=== PATIENT | female | born 1980 | race Caucasian/White ===

== ENCOUNTER 2017-03-05 12:07 | Inpatient (IN) | payer OTHER ==
--- NOTE | 2017-02-27 16:50 | HP ---
Admitting History and Physical - Primary Care Physician PCP: Mak Fischer - Admission Chief Complaint: Left breast cancer History of Present Illness: 36 year old premenapausal female who felt a lump in her left breast around 12:00 region. Mammogram and US 12/2016 at [facility] showed large area of suspicious calcifications expanding over 3 cm toward supper outer quadrant of left breast. Us showed 8x5 x7 mm mass. US core bx showed invasive ductal carcinoma. MRI breast showed some other areas of suspicion in the left breast and these were biopsied. Stereotactica bx showed left upper outer quadrant showed microinvasive cancer and mastectomy was recommeded at [place]. History Source: Patient Limitations to Obtaining History: No Limitations - Past Medical History Endocrine: Yes: Other (Hashimotos 2014 HELLP syndrome at the time ogf her c section) - Past Surgical History Past Surgical History: Yes: (C section with HELLP syndrome 2014) - Smoking History Smoking history: Never smoked Have you smoked in the past 12 months: No - Alcohol/Substance Use Hx Alcohol Use: Yes (social) Home Medications - Allergies Allergies/Adverse Reactions: Allergies Allergy/AdvReac Type Severity Reaction Status Date / Time No Known Allergies Allergy Verified 02/27/17 16:52 - Home Medications Home Medications (free text): levothyroxine Family Disease History - Family Disease History Family Disease History: CA: Grandparent (MGM lymphoma), Father (esophageal cancer 62), Mother (melanoma 38) Physical Examination Constitutional: Yes: Well Nourished Breast(s): Yes: Other ( mildly ptotic B cup breast with some bxs changes left upper aspect of breast Discrete mass palpated left breast 12:00 as well as scarring at the 2:00 region of prior bx right breast is negative and no adenopathy) Problem List - Problems (1) Breast cancer, left breast Code(s): C50.912 - MALIGNANT NEOPLASM OF UNSPECIFIED SITE OF LEFT FEMALE BREAST Qualifiers: Breast location: upper outer quadrant of breast Patient sex: female Assessment/Plan Bilateral total mastectomies implant and alloderm , left sentenel node biopsy and lymphoscintogram, possible axillary node dissection
[2017-03-01 11:05] VITALS: BMI 21.9
[2017-03-05] MEDS ORDERED: MIDAZOLAM HCL 2 MG/2 ML SINGLE DOSE VIAL ONE (13:29)
[2017-03-05] MEDS ORDERED: ROCURONIUM BROMIDE 50 MG/5 ML VIAL ONE ×2 (13:40→14:41)
[2017-03-05] MEDS ORDERED: PROPOFOL 20 ML ONE ×2 (13:40→14:51)
[2017-03-05] MEDS ORDERED: DEXAMETHASONE SOD PHOSPHATE 4 MG/1 ML VIAL ONE ×2 (13:48→14:20)
[2017-03-05] MEDS ORDERED: ceFAZolin SODIUM 1 GM VIAL ONE (13:48)
[2017-03-05] MEDS ORDERED: ONDANSETRON 4 MG/2 ML VIAL ONE ×2 (13:48→14:20)
[2017-03-05] MEDS ORDERED: LIDOCAINE HCL/PF 2% SDV 5ML VIAL ONE (13:48)
[2017-03-05] MEDS ORDERED: LIDOCAINE 1%/EPI 1:100000 (20 ML MULTI DOSE VIAL) IJ ONE (14:02)
[2017-03-05] MEDS ORDERED: HYDROmorphone HCL/PF 1 MG/ML VIAL (FOR PYXIS CHARGING ONLY) ONE (14:50)
[2017-03-05] MEDS ORDERED: ZOLPIDEM TARTRATE 5 MG TABLET PO PRN (15:43)
[2017-03-05] MEDS ORDERED: ONDANSETRON 4 MG/2 ML VIAL IVPB PRN (15:43)
[2017-03-05] MEDS ORDERED: NEOSTIGMINE METHYLSULFATE 0.5 MG/ML - 10 ML MDV ONE (16:24)
[2017-03-05] MEDS ORDERED: PROMETHAZINE HCL 25 MG/1 ML VIAL IVPUSH PRN (16:44)
[2017-03-05] MEDS ORDERED: ONDANSETRON 4 MG/2 ML VIAL IVPUSH PRN (16:44)
[2017-03-05] MEDS ORDERED: HYDROmorphone HCL CARPU-JECT 1 MG/1 ML DISP.SYRIN IVPUSH PRN (16:44)
[2017-03-05] MEDS: DEXTROSE 5%-0.45% SALINE 1,000 ML IV SCH (18:00)
[2017-03-05] MEDS ORDERED: oxyCODONE HCL 5 MG TABLET PO PRN (20:19)
[2017-03-05] MEDS: oxyCODONE HCL 5 MG TABLET PO PRN ×2 (20:29→23:44)
[2017-03-05] MEDS: ACETAMINOPHEN 325 MG TABLET (FP) PO PRN (20:29)
[2017-03-05] MEDS: CEFAZOLIN 1 GM/D5W 50 ML IVPB SCH (20:29)
[2017-03-06] MEDS: HEPARIN NA (PORCINE) 5,000 UNITS/ML 1ML VIAL SQ SCH ×2 (08:38→20:06)
[2017-03-06 08:42] LABS: MCH 31.5 pg (25.7-33.7); MCHC 34.1 g/dl (32.0-36.0); MEAN CELL VOLUME 92.2 fl (80-96); MEAN PLT VOLUME 9.1 fl (7.5-11.1); PLATELET COUNT 208 K/MM3 (134-434); RDW 11.7 % (11.6-15.6); WHITE BLOOD COUNT 8.2 K/mm3 (4.0-10.8)
--- NOTE | 2017-03-06 08:49 | PN ---
Progress Note (short form) - Note Progress Note: 36F POD1 s/p left breast mastectomy and sentinel lymph node biopsy with bilateral reconstruction under GA-ETT. Pt is doing well, states that pain is well controlled, denies any anesthetic complications. Sensory and motor function intact in bilateral lower extremities.
--- NOTE | 2017-03-06 08:52 | PN ---
Progress Note, Physician Chief Complaint: s/p Left mastectomy with biopsy of nodes with direct pre pectoral implant placement and right breast augmentation for symmetry. History of Present Illness: Pt is POd # 1 laying comfortably in bed in NAD. Pain well controlled. No sob, difficulty breathing, nausea, vomiting, fever, or chills. - Current Medication List Current Medications: Active Medications Acetaminophen (Tylenol -) 650 mg PO Q4H PRN PRN Reason: FEVER Last Admin: 03/05/17 20:29 Dose: 650 mg Fentanyl (Sublimaze Injection -) 50 mcg IVPUSH [id number] PRN PRN Reason: PAIN Stop: 03/08/17 16:45 Heparin Sodium (Porcine) (Heparin -) 5,000 unit SQ Q12H RANJITH Last Admin: 03/06/17 08:38 Dose: 5,000 unit Hydromorphone HCl (Dilaudid Injection -) 0.25 mg IVPUSH [id number] PRN PRN Reason: PAIN Stop: 03/08/17 16:45 Cefazolin Sodium (Ancef 1 Gm Premixed Ivpb -) 50 mls @ 100 mls/hr IVPB Q6H-IV RANJITH Stop: 03/12/17 20:59 Last Admin: 03/05/17 20:29 Dose: 100 mls/hr Dextrose/Sodium Chloride (D5-1/2ns -) 1,000 mls @ 100 mls/hr IV ASDIR RANJITH Last Admin: 03/05/17 18:00 Dose: 100 mls/hr Lactated Ringer's (Lactated Ringers Solution) 1,000 mls @ 125 mls/hr IV ASDIR [facility] Levothyroxine Sodium (Synthroid -) 75 mcg PO DAILY@0700 [facility] Ondansetron HCl (Zofran Injection) 4 mg IVPB Q6H PRN PRN Reason: NAUSEA AND/OR VOMITING Last Admin: 03/05/17 20:00 Dose: 4 mg Oxycodone HCl (Roxicodone -) 5 mg PO Q3H PRN Last Admin: 03/05/17 23:44 Dose: 5 mg Oxycodone HCl (Roxicodone -) 10 mg PO Q3H PRN Zolpidem Tartrate (Ambien -) 5 mg PO HS PRN PRN Reason: Insomnia - Objective Vital Signs: Vital Signs Temperature 97.8 F 03/05/17 21:08 Pulse Rate 75 03/05/17 21:08 Respiratory Rate 17 03/05/17 21:08 Blood Pressure 111/52 03/05/17 21:08 O2 Sat by Pulse Oximetry (%) 98 03/05/17 21:09 Constitutional: Yes: Well Nourished, No Distress, Calm Eyes: Yes: WNL HENT: Yes: WNL Cardiovascular: Yes: WNL Respiratory: Yes: WNL Gastrointestinal: Yes: WNL ...Rectal Exam: Yes: Deferred Genitourinary: Yes: WNL Breast(s): Yes: Other (Left breast healing well with appropriate swelling and ecchymosis. NEREYDA drains holding suction. Incision with steri strip in placed. Dressings dry. Nipple viable with dusky appearance. Right breast with mild swelling. steri strip in place. No s/s of infection) Musculoskeletal: Yes: WNL Extremities: Yes: WNL Edema: No Wound/Incision: Yes: Clean/Dry, Well Approximated, Steri Strips Neurological: Yes: WNL ...Motor Strength: WNL Psychiatric: Yes: Alert, Oriented Additional Findings/Remarks: cont with pain management cont with edu [place] cont with bra and edu [place]ork possible d/c today or dave
[2017-03-06] MEDS: CEFAZOLIN 1 GM/D5W 50 ML IVPB SCH ×5 (10:01→22:08)
--- NOTE | 2017-03-06 10:10 | OP ---
DATE OF OPERATION: 03/05/2017 SURGEON: Aurelio Garcia M.D. HEATING [employer]LEMENT WINDER SURGEON: CLAY Tran This is a combined dictation with Dr. Aurelio Fischer. His portion of the operation will be dictated under separate cover. PREOPERATIVE DIAGNOSES: 1. Bilateral acquired chest wall deformity status post left mastectomy. 2. Asymmetry of reconstructed chest wall. OPERATIVE PROCEDURE: 1. Immediate left breast reconstruction utilizing immediate insertion of silicone breast implant and AlloDerm reconstruction. 2. Right breast augmentation mammoplasty for symmetry to mastectomy. POSTOPERATIVE DIAGNOSES: 1. Immediate left breast reconstruction utilizing immediate insertion of silicone breast implant and AlloDerm reconstruction. 2. Right breast augmentation mammoplasty for symmetry to mastectomy. OPERATIVE INDICATION: The patient is a young woman who is brought to the operating room by Dr. Aurelio Fischer for left breast sentinel lymph node biopsy and left mastectomy for breast cancer. The patient elected to have immediate breast reconstruction with the above procedures. The risks and benefits, surgical versus nonsurgical alternatives as well as material complications of the reconstruction were described on multiple occasions preoperatively including today in the holding area with her in attendance. She understood the implications of pre-pectoral reconstruction and augmentation mammoplasty. OPERATIVE PROCEDURE IN DETAIL: The patient was taken to the operating room and after induction of general anesthesia in supine position both arms were extended and padded, Venodyne boots were placed. At this point the entire chest wall was prepped with ChloraPrep solution over its entire extent including the left arm which was prepared for sentinel lymph node biopsy. At this point Dr. Aurelio Fischer performed the procedure under separate cover which will be dictated. I began my portion of the operation on the right breast after placing sterile drapes in the usual fashion by making a 3.5 cm incision in the right inframammary fold for augmentation. Using optimal magnification incision was made down through the skin, through the subcutaneous tissue down to the underlying chest wall. A subcutaneous pocket was created behind the breast using the electrocautery and the lighted retractor creating a space superiorly to the 2nd rib, medially to the sternal fibers, and laterally to the anterior axillary line and down to the inframammary fold. At this point after copious irrigation hemostasis and assessment an implant was chosen. A Natrelle Inspira cohesive breast implant style SCL 110 mL was placed into the right breast pocket for reconstructive purposes. Good shape and contour was seen. Hemostasis was again obtained. The pocket was closed using 3-0 Monocryl sutures on the deep tissue, 3-0 in a deep dermal fashion and 4-0 in a subcuticular fashion. Upon completion of the mastectomy and axillary lymph node biopsy on the left breast, the SPY intraoperative angiogram was carried out on the left breast. Indocyanine green dye 4 mL was injected into the intravascular system and a SPY intraoperative angiogram was carried out over the left breast mastectomy. Good flow was seen to all areas of the breast with slightly delayed areas in the nipple areolar complex. The reconstructive procedure was then carried out using AlloDerm Select Duo RTM Bilateral pairs, 2 medium contour perforated AlloDerms were sutured together on the back table. A pre-pectoral reconstruction was then carried out by choosing an implant of eelusion Cohesive breast implant style SCM 310 mL which was placed into the chest wall pocket and then the AlloDerm material was sutured circumferentially using 2-0 PDS suture on the tacking procedure and then a running suture closing the pocket circumferentially from the position of 10 oclock to 2 oclock around the breast in order to cover the entire anterior surface of the reconstructed breast. Two Jose drains were brought out through separate stab wounds 15 mm and then the pocket was closed using the usual sutures of 3-0 PDS on the deep tissue, 3-0 PDS in the deep dermal fashion and 4-0 Biosyn in the subcuticular fashion. All wounds were dressed sterilely with Dermabond and Steri-Strips. Good shape and contour was seen. A 2nd intraoperative angiogram was carried out over the left breast which showed better improved blood flow to the nipple areolar complex and the patient was taken to the recovery room in a surgery bra. She tolerated the procedure well. AURELIO GARCIA M.D. [id number]
--- NOTE | 2017-03-06 10:38 | OP ---
DATE OF OPERATION: 03/05/2017 PREOPERATIVE DIAGNOSIS: Left breast upper outer quadrant, multifocal breast cancer. POSTOPERATIVE DIAGNOSIS: Left breast upper outer quadrant, multifocal breast cancer. PROCEDURE: Left breast total nipple-sparing mastectomy through an inframammary approach with a left axillary sentinel lymph node biopsy and [id number] reconstruction with AlloDerm placed prepectorally. ANESTHESIA: General endotracheal. PRIMARY SURGEON: Mak Fischer MD WORD PROCESSING MACHINE OPERATOR: MANASA Younger Primary surgeon for the left breast [id number] reconstruction with AlloDerm placed prepectorally is Mak Garcia MD, with his first assist MANASA Lagos. COMPLICATIONS: None. INDICATIONS FOR PROCEDURE: Briefly, the patient is a 36-year-old, premenopausal white female with [place] descent. She has no family history of breast or ovarian cancer. Her mother from melanoma at age 38, and her father from esophageal cancer at age 62. The patient felt a lump towards the upper outer aspect of the left breast in December of 2016, and mammography and ultrasound showed a large area of pleomorphic suspicious calcifications over an area of about 3 cm in the upper outer aspect of the left breast. Ultrasound showed a suspicious 8 x 5 x 7 mm mass, and ultrasound-guided core biopsy showed intermediate-grade, infiltrating ductal cancer which was ER/FL positive and HER2/latanya negative. MRI showed some other areas of suspicion in the upper outer quadrant of the left breast with calcifications on mammography. Separate stereotactic biopsy of this calcification did show more microinvasive cancer, making the cancer fairly extensive, and mastectomy was indicated. It was far enough away from the nipple to offer a nipple-sparing mastectomy. The patient was seen in consultation, understood the need for a sentinel lymph node biopsy, possible axillary dissection if any of the nodes were positive. She was seen by Plastic Surgery and decided to undergo an implant reconstruction placed prepectorally. She underwent genetic testing with a myRisk panel test which was negative preoperatively. The patient was brought in for the surgery on March 05, 2017, and first underwent a lymphoscintigraphy with a periareolar injection of technetium 99. She was brought to the [facility], and in the holding area, site verification was made and informed consent was obtained. She signed consent for the nipple-sparing registry program as well. DESCRIPTION OF PROCEDURE: She was brought into the operating room and laid on the OR table in the supine position. She was marked preoperatively by the plastic surgeon. On the OR table, Venodynes were placed on the lower extremities, and she received a gram of Ancef prior to incision. Both breasts were sterilely prepped and draped in the usual fashion, and she underwent general endotracheal anesthesia. The patient did undergo an augmentation on the right side which will be dictated separately by Plastic Surgery at the time of the mastectomy on the left side. An inframammary incision was then marked out in the inframammary fold about 8 cm in length. The sentinel node biopsy was first performed. Incision was made just below the hair-bearing area of the left axilla, and dissection was undertaken. Two hot nodes were found in the left axilla. No blue dye was injected since we were doing nipple-sparing procedure to prevent vasoconstriction and possible loss of the nipple. These 2 nodes were taken out, and the first had a 10-second gamma count of 14,207 with the second node with a 10-second gamma count of 3408. Background count after removal of these 2 nodes was 51. Both nodes were sent for frozen section and came back negative; so, no further nodes were removed. Hemostasis was achieved. At this point, the mastectomy was performed through an inframammary incision about 8 cm in length. The skin edges were everted, and the breast was retracted inferiorly using Montour clamps. The skin flap was raised using the PEAK radiofrequency device superiorly to the level of the clavicle, medially to the level of the sternum, laterally to the level of the latissimus, and inferiorly below the level of the inframammary fold. The breast was taken down off the pectoralis major muscle using electrocautery from inferomedial to superolateral and completely removed intact. It was oriented with a long lateral/short superior suture and weighed to allow for appropriate cosmetic result. Specimen radiograph of the specimen showed removal of all the calcifications as well as the clip in question. The skin edges were trimmed to a good cosmetic result, and a separate margin was taken on the anterolateral and anterior aspects, which were both sent separately as anterior margins with sutures marking the biopsy cavity side. A retroareolar biopsy was taken underneath the left nipple-areolar complex, and it came back negative, so the left nipple was spared. Hemostasis was achieved, and the wound was copiously irrigated. At this point, Dr. Garcia had finished the augmentation on the right side for symmetry and placed the prepectoral implant with AlloDerm on the left side, which will be dictated separately by Plastic Surgery. A drain will be placed around this implant, brought through a separate stab incision on the lateral skin flap. All wound will be closed by Plastic Surgery using interrupted 3-0 deep dermal PDS suture with a running 4-0 subcuticular PDS suture. The patient will be placed in a surgical bra postoperatively and will be extubated and recovered in the recovery room and admitted postoperatively for postoperative wound and pain management. Estimated blood loss at the end of the mastectomy was about 50 mL, and she was hemodynamically stable throughout. All sponge and needle counts were correct at this point in the case. We did use the SPY skin perfusion device at the end of the mastectomy and after the reconstruction, which did show good skin perfusion. Latoya [id number]
[2017-03-06] MEDS: LACTATED RINGERS SOLUTION 1,000 ML IV SCH (13:04)
[2017-03-06] MEDS: LEVOTHYROXINE NA 75 MCG TABLET (FP) PO SCH (13:05)
[2017-03-06] MEDS: DEXTROSE 5%-0.45% SALINE 1,000 ML IV SCH (15:59)
[2017-03-06] MEDS: ACETAMINOPHEN 325 MG TABLET (FP) PO PRN (20:05)
[2017-03-06] MEDS: oxyCODONE HCL 5 MG TABLET PO PRN (20:05)
[2017-03-06] MEDS: CEPHALEXIN MONOHYDRATE 500 MG CAPSULE (UD) PO SCH (22:19)
[2017-03-07 06:47] VITALS: BP 101/62; PULSE 91; TEMP 98.8
[2017-03-07] MEDS: oxyCODONE HCL 5 MG TABLET PO PRN (07:00)
[2017-03-07] MEDS: LEVOTHYROXINE NA 75 MCG TABLET (FP) PO SCH (07:00)
[2017-03-07] MEDS: HEPARIN NA (PORCINE) 5,000 UNITS/ML 1ML VIAL SQ SCH (08:29)
[2017-03-07] MEDS: LACTATED RINGERS SOLUTION 1,000 ML IV SCH (08:30)
--- NOTE | 2017-03-07 09:03 | PN ---
Progress Note, Physician Chief Complaint: s/p left mastectomy with snbx, lympho implant placement and right augmentation POD #2 History of Present Illness: Patient is doing well this am without any complaints. She has good pain control and is tolerating po well. - Current Medication List Current Medications: Active Medications Acetaminophen (Tylenol -) 650 mg PO Q4H PRN PRN Reason: FEVER Last Admin: 03/06/17 20:05 Dose: 650 mg Cephalexin HCl (Keflex -) 500 mg PO QID [facility] Last Admin: 03/06/17 22:19 Dose: 500 mg Fentanyl (Sublimaze Injection -) 50 mcg IVPUSH [id number] PRN PRN Reason: PAIN Stop: 03/08/17 16:45 Heparin Sodium (Porcine) (Heparin -) 5,000 unit SQ Q12H [facility] Last Admin: 03/07/17 08:29 Dose: 5,000 unit Hydromorphone HCl (Dilaudid Injection -) 0.25 mg IVPUSH [id number] PRN PRN Reason: PAIN Stop: 03/08/17 16:45 Dextrose/Sodium Chloride (D5-1/2ns -) 1,000 mls @ 100 mls/hr IV ASDIR [facility] Last Admin: 03/06/17 15:59 Dose: Not Given Lactated Ringer's (Lactated Ringers Solution) 1,000 mls @ 125 mls/hr IV ASDIR [facility] Last Admin: 03/07/17 08:30 Dose: Not Given Levothyroxine Sodium (Synthroid -) 75 mcg PO DAILY@0700 [facility] Last Admin: 03/07/17 07:00 Dose: 75 mcg Ondansetron HCl (Zofran Injection) 4 mg IVPB Q6H PRN PRN Reason: NAUSEA AND/OR VOMITING Last Admin: 03/05/17 20:00 Dose: 4 mg Oxycodone HCl (Roxicodone -) 5 mg PO Q3H PRN Last Admin: 03/07/17 07:00 Dose: 5 mg Oxycodone HCl (Roxicodone -) 10 mg PO Q3H PRN Last Admin: 03/06/17 14:56 Dose: 10 mg Zolpidem Tartrate (Ambien -) 5 mg PO HS PRN PRN Reason: Insomnia - Objective Vital Signs: Vital Signs Temperature 98.8 F 03/07/17 06:00 Pulse Rate 91 H 03/07/17 06:00 Respiratory Rate 18 03/07/17 06:00 Blood Pressure 101/62 03/07/17 06:00 O2 Sat by Pulse Oximetry (%) 95 03/07/17 06:46 Constitutional: Yes: Well Nourished, Calm Breast(s): Yes: Other (Left breast flap with good color, minimal ecchymosis noted. Steristrips intact without erythema or discharge noted. Nipple/areola complex with good color.) Labs: CBC, BMP 03/06/17 07:00 Problem List - Problems (1) Breast cancer, left breast Code(s): C50.912 - MALIGNANT NEOPLASM OF UNSPECIFIED SITE OF LEFT FEMALE BREAST Qualifiers: Breast location: upper outer quadrant of breast Patient sex: female Assessment/Plan Plan: Discharge today on axbx and pain meds. Patient to followup with Dr. Fischer and Dr. Garcia next week. Patient to record NEREYDA output at home.
--- NOTE | 2017-03-07 09:10 | DS ---
Physical Examination Vital Signs: Vital Signs Temperature 98.8 F 03/07/17 06:00 Pulse Rate 91 H 03/07/17 06:00 Respiratory Rate 18 03/07/17 06:00 Blood Pressure 101/62 03/07/17 06:00 O2 Sat by Pulse Oximetry (%) 95 03/07/17 06:46 Constitutional: Yes: Well Nourished, Calm Breast(s): Yes: Other (lleft breast flap, nipple areola complex with good color. Steristrips intact. NEREYDA with serosanginous discharge.) Labs: CBC, BMP 03/06/17 07:00 Discharge Summary Reason For Visit: LEFT BREAST CA Current Active Problems Breast cancer, left breast (Acute) Procedures: Principal: Left mastectomy with snbx, lymphoscintogram, reconstruction and right breast augmentation Hospital Course: Unremarkable hospital course Condition: Good - Instructions Diet, Activity, Other Instructions: BREAST SURGERY INSTRUCTIONS Wesly Fischer M.D., FACS Mak Fischer M.D., RODDY Dsouza M.D., FACS 1. Please call the office at to make a follow up appointment with your surgeon. This number can be also used for any urgent issues you may have. 2. Call us immediately if any of the following occur: *Bleeding from the incision or drain site (a small amount is normal) *Fever or chills *Redness and worsening tenderness around the surgical site *Drainage of pus or fluid from the incision or drain site 3. You may change the surgical dressing two (2) days after your surgery, and may shower then. If you have drains, you may shower after they have been removed, until then take a sponge bath. 4. It is normal for there to be some bruising and tenderness around the surgical site, and the breast may also be firm in this area. 5. Please wear a comfortable bra (sports or surgical bra) all day and all night until your first follow-up visit with your surgeon. 6. The pain medicine you have been prescribed may make you constipated; make sure you drink plenty of water. You may use an over the counter laxative if needed. 7. You may resume your normal diet after surgery, although you may want to avoid rich foods for the first twenty-four (24) hours after surgery. Alcoholic drinks should be avoided while taking the prescribed pain medicine. 8. You may resume normal activities as long as there is no discomfort, but do not do upper body exercises until after your follow-up appointment. Do not lift anything heavier than a large phone book. You may resume driving once you have stopped taking the prescribed pain medicine and feel comfortable doing arm movements. Referrals: Mak Fischer MD [Staff Physician] - Jose Garcia MD [Staff Physician] - Disposition: HOME - Home Medications Comprehensive Discharge Medication List: Ambulatory Orders Albuterol Sulfate Inhaler - [Ventolin HFA Inhaler -] 2 inh PO Q4H PRN 03/01/17 Levothyroxine [Synthroid -] 75 mcg PO DAILY 03/01/17 Cefadroxil 500 mg PO BID #20 capsule 03/07/17 Oxycodone HCl/Acetaminophen [Percocet 5-325 mg Tablet -] 1 - 2 tab PO Q6H #30 tablet MDD 6 03/07/17
[2017-03-07] MEDS: CEPHALEXIN MONOHYDRATE 500 MG CAPSULE (UD) PO SCH (09:24)
--- NOTE | 2017-03-08 19:01 | PATH ---
Surgical Pathology Report Patient Name: FRANCA CHAVES [facility]. Rec. #: [id number] /Age/Gender: 1980 (Age: 36) / F Account: [id number] Location: [facility] Taken: 03/05/2017 Received: 03/05/2017 Reported: 03/12/2017 Physicians: Mak Fischer M.D. Specimen(s) Received A: LEFT AXILLARY SENTINEL NODE #1 (FS) B: LEFT AXILLARY SENTINEL NODE #2 (FS) C: LEFT BREAST RETROAREOLAR BIOPSY(FS) D: LEFT BREAST MASTECTOMY E: LEFT BREAST LATERAL / ANTERIOR MARGIN F: LEFT BREAST ANTERIOR MARGIN Clinical History Left breast cancer, multifocal UOQ Mastectomy: Invasive Ca Intraoperative Consult Diagnosis A. Left axillary sentinel node #1, touch prep and frozen section: One lymph node, no carcinoma identified. B. Left axillary sentinel node #2, touch prep and frozen section: One lymph node, no carcinoma identified. C. Left breast retroareolar biopsy, frozen section: No carcinoma identified. Dr. Jamison, 03/05/17. Final Diagnosis A. lymph node, left axillary sentinel #1, excision (FS): One lymph node, negative for metastatic carcinoma (0/1). b. lymph node, left axillary sentinel #2, excision (FS): One lymph node, negative for metastatic carcinoma (0/1). C. Retroareola, left breast, biopsy (FS): Benign breast tissue; negative for malignancy. D. Breast, left, nipple-SPARING mastectomy: ONE FOCus of invasive ductal carcinoma and (at least) two foci OF microinvasive carcinoma: The focus of invasive ductal carcinoma is present in the upper inner quadrant (UIQ), measures 1.0 cm in greatest dimension and is moderately differentiated (tubule score: 3/3, nuclear grade: 2/3, mitotic score: 2/3; total Devante score: 7/9). tHE foci of microinvasive carcinoma (</= 1mm) ARE present in the upper outer quadrant (UOQ). 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 DCIS is present in the UOQ and UIQ with the largest contiguous focus of DCIS measuring at least 2.2 cm in greatest dimension. Invasive carcinoma and DCIS extend to the anterior margin. see specimens E & F for final lateral/anterior margins. No lymphovascular invasion is identified. Pathologic stage (ptnm): pT1b(m) pN0. see ALSO invasive carcinoma case summary below. Note: Myoepithelial immunohistochemical markers (SMM-HC & p63, performed on block D10 at [facility], [place]) demonstrate the lack of myoepithelial cells in a focus of microinvasive carcinoma. This finding supports the diagnosis. E. breast, left, lateral/anterior margin, excision: Benign fibroadipose tissue. F. breast, left, anterior margin, excision: Benign fibroadipose tissue. Comments Breast Invasive Carcinoma: Surgical Pathology Cancer Case Summary Based on AJCC/UICC TNM, 7th edition Procedure _X_ Other: nipple-sparing mastectomy Lymph Node Sampling _X_ Valentines lymph node(s) Specimen Laterality _X_ Left Tumor Size: Size of Largest Invasive Carcinoma: 1.0 cm Tumor Focality _X_ Multiple foci of invasive carcinoma Number of foci: 3 Sizes of individual foci: 1 cm, </= 1 mm (2 foci) Macroscopic and Microscopic Extent of Tumor Nipple _X_ Not applicable (excisions less than total mastectomy) Ductal Carcinoma In Situ (DCIS) _X_ DCIS is present _X_ as a major component (>25% of tumor, extensive intraductal component) Histologic Type of Invasive Carcinoma : _X_ Invasive carcinoma of no special type (ductal, not otherwise specified) Histologic Grade: (Fisk Histologic Score) Tubular Differentiation _X_ Score 3 Nuclear Pleomorphism _X_ Score 2 Mitotic Rate _2_ Score 2 Overall Grade _X_ Grade 2: scores of 6 or 7 (moderately differentiated) Margins _X_ Margins uninvolved by invasive carcinoma Distance from closest margin: invasive carcinoma extends to the anterior margin in the mastectomy specimen (D); final lateral/anterior (E) and anterior (F) margins are negative for carcinoma. _X_ Margins uninvolved by DCIS Distance from closest margin: DCIS extends to the anterior margin in the mastectomy specimen (D); final lateral/anterior (E) and anterior (F) margins are negative for DCIS. Lymph-Vascular Invasion _X_ Not identified Lymph Nodes Total number of lymph nodes examined (sentinel and nonsentinel): 2 Number of sentinel lymph nodes examined:2 Number of lymph nodes with macrometastases ( > 2 mm): 0 Number of lymph nodes with micrometastases (>0.2 mm to 2 mm and/or >200cells):0 Number of lymph nodes with isolated tumor cells (=0.2 mm and =200 cells): 0 Extranodal Extension _X_ Not applicable Pathologic Staging (pTNM) Primary Tumor (Invasive Carcinoma): pT1b(m) Regional Lymph Nodes (pN): pN0(sn) Biomarker Studies Results of ER and NM studies performed on this specimen (block D2) at [facility] are as follows: ER (clone [id number] mouse monoclonal antibody by [employer]): ~70 % nuclear staining with moderate to strong intensity (Positive). NM (clone16 mouse monoclonal antibody by [employer]): 50 % nuclear staining with moderate intensity (Positive). Results of Her2 & Ki67 studies will be reported separately in an addendum. Positive and negative controls (internal if applicable) show appropriate results. Formalin fixation and cold ischemic times are within current ASCO/CAP recommendations for ER, NM and Her2 testing. Electronically Signed Kacie Tavarez M.D. Addendum Reported: 03/11/2017 Addendum Diagnosis Results of Her2 (IHC) & Ki-67 studies performed on block "D2" at [place], [place] ([id number]) are as follows: Her2 IHC (EP3 from [employer], formerly known as [id number], using [employer] Polymer Refine detection kit): 0 Negative Ki-67: up to 20% (Intermediate) Positive and negative controls (internal if applicable) show appropriate results. Wallace Luque M.D. Gross Description A. Received fresh, labeled "left axillary sentinel node #1"is a 1.3 x 0.8 x 0.4 cm urena-pink rubbery lymph node. The node is bisected, a touch prep is made and the tissue is submitted for frozen section. The frozen section residue is submitted entirely in one cassette. B. Received fresh, labeled "left axillary sentinel node #2" is a 0.7 x 0.3 x 0.2 cm urena-pink rubbery lymph node. The specimen is bisected, a touch prep is made, and the tissue is submitted for frozen section. The frozen section residue is submitted entirely in one cassette. C. Received fresh, labeled "left breast retroareolar biopsy" is a 1.9 x 1.6 x 0.5 cm fragment of urena-pink fibrofatty tissue. The specimen is entirely submitted for frozen section. The frozen section residue is submitted entirely in one cassette. AF03/05/2017 D. Received in formalin, labeled "left breast mastectomy" is a 15.5 x 12.5 x 2.5 cm mastectomy specimen with a long suture designating the lateral margin and a short suture indicating the superior margin, per the surgeon. The anterior margin is inked blue and the deep margin is inked black. Sectioning reveals a urena ill-defined 1.5 x 1.1 x 1.0 cm mass in the upper inner quadrant (UIQ) abutting the anterior margin and at 1.1 cm from the deep margin. Present surrounding the mass are multiple urena firm foci. Additional urena firm foci are also identified in the upper outer quadrant (UOQ). The remaining breast tissue is comprised predominantly of adipose tissue with scattered white fibrotic foci. Interventional Tech sections are submitted in fifteen cassettes as follows: 1,2- mass with anterior and deep margins; 3-7-firm foci surrounding mass in UIQ; 8-11-firm foci in UOQ; 12,13-lower inner quadrant (LIQ); 14,15-lower outer quadrant (LOQ). Time to formalin fixation: 41 minutes Total formalin fixation time: Approximately 29 hours E. Received in formalin, labeled "left breast lateral/anterior margin" is a 4.8 x 2.8 x 0.5 cm portion of fibrofatty tissue. A suture hinton the biopsy cavity side, per the surgeon. The margin opposite the suture is inked. The specimen is serially sectioned and entirely submitted in six cassettes. F. Received in formalin, labeled "left breast anterior margin" is a 2.3 x 2 x 2.5 cm portion of predominantly fatty tissue. A suture hinton the biopsy cavity side, per the surgeon. The margin opposite the suture is inked. The specimen is serially sectioned and entirely submitted in three cassettes. final03/05/2017
== END 2017-03-07 11:12 | disposition home or self-care (01) | DRG 581 ==
LOC: FM/S 12:07
PROVIDERS: ADMIT Surgery Surgical Oncology; ATTEND Surgery Surgical Oncology
PROC: 0HTU0ZZ Resection of Left Breast, Open Approach (ICD-10-PCS; principal; 2017-03-05 14:01)
PROC: 07B60ZX Excision of Left Axillary Lymphatic, Open Approach, Diagnostic (ICD-10-PCS; 2017-03-05 14:01)
PROC: 0HRU0JZ Replacement of Left Breast with Synthetic Substitute, Open Approach (ICD-10-PCS; 2017-03-05 14:01)
PROC: 0H0T0JZ Alteration of Right Breast with Synthetic Substitute, Open Approach (ICD-10-PCS; 2017-03-05 14:01)
DX: C50.412 Malignant neoplasm of upper-outer quadrant of left female breast (principal); M95.4 Acquired deformity of chest and rib; E06.3 Autoimmune thyroiditis
CPT/HCPCS: 36415; 78195-TC; 84703; 85027; 88305-TC; 88307-TC; 88331-TC; 88341-TC; 94010; 94760; A9541; J1644

== ENCOUNTER 2022-08-16 06:09 | Day surgery (SDC) | payer OTHER ==
[2022-07-27 15:46] VITALS: BMI 22.7
[2022-08-16] MEDS ORDERED: ceFAZolin SODIUM 1 GM VIAL ONE ×3 (07:14→08:14)
[2022-08-16] MEDS ORDERED: VANCOMYCIN 1,000 MG VIAL (RESTRICTED TO ID ONLY) ONE ×2 (07:14→08:14)
[2022-08-16] MEDS ORDERED: LIDOCAINE HCL 2% (20ML MULTI-DOSE VIAL) ONE (07:15)
[2022-08-16] MEDS ORDERED: EPINEPHrine/PF 1 MG/1 ML (1:1,000) AMPULE ONE (07:15)
[2022-08-16] MEDS ORDERED: BUPIVACAINE HCL/EPINEPHRINE/PF 30 ML VIAL IJ ONE (07:15)
[2022-08-16] MEDS ORDERED: SODIUM BICARBONATE 8.4% 50 MEQ/50 ML VIAL ONE (07:15)
[2022-08-16] MEDS ORDERED: GENTAMICIN SO4 80 MG/2 ML VIAL ONE ×2 (07:15→08:14)
[2022-08-16] MEDS ORDERED: PROPOFOL 20 ML ONE (07:20)
[2022-08-16] MEDS ORDERED: SUCCINYLCHOLINE CHLORIDE 200 MG/10 ML SYRINGE ONE (07:20)
[2022-08-16] MEDS ORDERED: MIDAZOLAM HCL 2 MG/2 ML SINGLE DOSE VIAL ONE (07:22)
[2022-08-16] MEDS ORDERED: ONDANSETRON 4 MG/2 ML VIAL ONE ×2 (08:04→09:56)
[2022-08-16] MEDS ORDERED: DEXAMETHASONE SOD PHOSPHATE 4 MG/1 ML VIAL ONE (08:04)
[2022-08-16] MEDS ORDERED: KETOROLAC TROMETHAMINE 30 MG/1 ML VIAL ONE (08:54)
[2022-08-16] MEDS ORDERED: ONDANSETRON 4 MG/2 ML VIAL IVPUSH PRN (10:36)
[2022-08-16] MEDS ORDERED: oxyCODONE HCL 5 MG TABLET PO PRN (10:36)
[2022-08-16] MEDS ORDERED: FENTANYL CITRATE/PF 50 MCG/ML VIAL ONE ×2 (10:43→11:27)
[2022-08-16] MEDS ORDERED: LACTATED RINGERS SOLUTION 1,000 ML IV SCH (10:45)
[2022-08-16] MEDS ORDERED: ACETAMINOPHEN INJECTION 100 ML IVPB ONE (11:04)
[2022-08-16] MEDS ORDERED: ACETAMINOPHEN 1000 MG/100 ML BAG IVPB ONE (11:30)
[2022-08-16] MEDS ORDERED: oxyCODONE HCL 5 MG TABLET ONE (12:02)
[2022-08-16 12:38] VITALS: BP 114/69; PULSE 61; RESP 19; TEMP 98
== END 2022-08-16 12:35 | disposition home or self-care (01) ==
LOC: FASU 06:09
PROVIDERS: ATTEND Plastic Surgery
PROC: 0HRV0JZ Replacement of Bilateral Breast with Synthetic Substitute, Open Approach (ICD-10-PCS; 2022-08-16)
PROC: 0HX5XZZ Transfer Chest Skin, External Approach (ICD-10-PCS; 2022-08-16)
PROC: 0HRV37Z Replacement of Bilateral Breast with Autologous Tissue Substitute, Percutaneous Approach (ICD-10-PCS; 2022-08-16)
PROC: 0HPU0JZ Removal of Synthetic Substitute from Left Breast, Open Approach (ICD-10-PCS; principal; 2022-08-16 08:11)
PROC: 0HPT0JZ Removal of Synthetic Substitute from Right Breast, Open Approach (ICD-10-PCS; 2022-08-16 08:11)
DX: Z85.3 Personal history of malignant neoplasm of breast (principal); Z90.12 Acquired absence of left breast and nipple; N65.0 Deformity of reconstructed breast; N65.1 Disproportion of reconstructed breast
CPT/HCPCS: 14000; 15771; 19342; 19371; L8600; 81025; 88300-TC; 88304-TC; 88305-TC; 94760; C1789

== ENCOUNTER 2023-09-05 07:04 | Day surgery (SDC) | payer OTHER ==
[2023-07-31 13:52] VITALS: BMI 22.7
[~2023-09-05 07:04] MED LIST: LACTATED RINGERS SOLUTION 1,000 ML IV SCH; ONDANSETRON 4 MG/2 ML VIAL IVPUSH PRN; PROMETHAZINE HCL 25 MG/1 ML VIAL IVPB PRN; oxyCODONE HCL 5 MG TABLET PO PRN
[2023-09-05] MEDS ORDERED: EPINEPHrine/PF 1 MG/1 ML (1:1,000) AMPULE ONE (07:23)
[2023-09-05] MEDS ORDERED: VANCOMYCIN 1,000 MG VIAL (RESTRICTED TO ID ONLY) ONE (07:23)
[2023-09-05] MEDS ORDERED: BUPIVACAINE HCL/PF 2.5 MG/ML - 30 ML VIAL IJ ONE (07:23)
[2023-09-05] MEDS ORDERED: GENTAMICIN SO4 80 MG/2 ML VIAL ONE (07:23)
[2023-09-05] MEDS ORDERED: ceFAZolin SODIUM 1 GM VIAL ONE ×2 (07:23→08:58)
[2023-09-05] MEDS ORDERED: MIDAZOLAM HCL 2 MG/2 ML SINGLE DOSE VIAL ONE (07:49)
[2023-09-05] MEDS ORDERED: SUCCINYLCHOLINE CHLORIDE 200 MG/10 ML SYRINGE ONE (07:49)
[2023-09-05] MEDS ORDERED: PROPOFOL 20 ML ONE (07:49)
[2023-09-05] MEDS ORDERED: SEVOFLURANE 250 ML BTL ONE (08:49)
[2023-09-05] MEDS ORDERED: ONDANSETRON 4 MG/2 ML VIAL ONE ×2 (08:56→10:07)
[2023-09-05] MEDS ORDERED: DEXAMETHASONE SOD PHOSPHATE 4 MG/1 ML VIAL ONE (08:56)
[2023-09-05] MEDS ORDERED: PROMETHAZINE HCL 25 MG/1 ML VIAL IVPB PRN (10:32)
[2023-09-05] MEDS ORDERED: oxyCODONE HCL 5 MG TABLET PO PRN (10:32)
[2023-09-05] MEDS: ONDANSETRON 4 MG/2 ML VIAL IVPUSH PRN (10:40)
[2023-09-05] MEDS ORDERED: ACETAMINOPHEN INJECTION 100 ML IVPB ONE (10:44)
[2023-09-05] MEDS: ACETAMINOPHEN 1000 MG/100 ML BAG IVPB ONE (10:44)
[2023-09-05] MEDS ORDERED: LACTATED RINGERS SOLUTION 1,000 ML IV SCH (10:45)
[2023-09-05 11:55] VITALS: RESP 18; TEMP 97.2
[2023-09-05 13:21] VITALS: BP 112/60; PULSE 64
== END 2023-09-05 13:05 | disposition home or self-care (01) ==
LOC: FASU 07:04
PROVIDERS: ATTEND Plastic Surgery
PROC: 0HRU0JZ Replacement of Left Breast with Synthetic Substitute, Open Approach (ICD-10-PCS; 2023-09-05)
PROC: 0HX5XZZ Transfer Chest Skin, External Approach (ICD-10-PCS; 2023-09-05)
PROC: 0HPU0JZ Removal of Synthetic Substitute from Left Breast, Open Approach (ICD-10-PCS; principal; 2023-09-05 09:13)
DX: T85.44XA Capsular contracture of breast implant, initial encounter (principal); Z85.3 Personal history of malignant neoplasm of breast; Z90.12 Acquired absence of left breast and nipple; N65.0 Deformity of reconstructed breast; Y82.8 Other medical devices associated with adverse incidents; Y92.9 Unspecified place or not applicable
CPT/HCPCS: 14000; 15777; 19342; 19371; L8600; 81025; 88304-TC; 94760; C1789; J0131